=== PATIENT | male | born 1990 | race Caucasian/White ===

== ENCOUNTER 2017-12-17 19:01 | Emergency (ER) | payer BC ==
[~2017-12-17] VITALS: Ht 182.9 cm; Wt 108.9 kg
[2017-12-17 19:20] VITALS: BP 141/83
--- NOTE | 2017-12-17 19:23 | NUR ---
TO BED # 10 AMBULATORY, REPORT GIVEN TO BARBARA CARRERA
[2017-12-17 19:24] VITALS: BP 141/83
--- NOTE | 2017-12-17 19:25 | NUR ---
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 SCLERA IS REDDENED, PERRL, BLURRY VISION AND EYE IS TEARING. PT WASHED EYE OUT AT WORK BUT HAD PAIN WHILE DRIVING HOME. PT IS LAYING IN BED, FACIAL GRIMACING. INSTRUCTED PT TO WASH EYE OUT AGAIN, PT DID NOT TOLERATE, WILL CONTINUE W/ ANY NEW ORDERS.
[2017-12-17] MEDS ORDERED: TETRACAINE HCL/PF 0.5% OPTH 4 ML BTL ONE (19:37)
[2017-12-17] MEDS ORDERED: FLUORESCEIN OPTH STRIP 0.6 MG ONE (19:37)
--- NOTE | 2017-12-17 20:37 | NUR ---
PT JAK, STATES HE CANNOT WAIT ANY LONGER HE HAS TO [employer] HIS DAUGHTER, DOES NOT WANT TO WAIT FOR D/C PAPERWORK.
== END 2017-12-17 20:37 | disposition left against medical advice (07) ==
LOC: MED 19:01
DX: H57.11 Ocular pain, right eye (principal); H53.8 Other visual disturbances
CPT/HCPCS: 99283

== ENCOUNTER 2017-12-18 12:57 | Emergency (ER) | payer BC ==
[~2017-12-18] VITALS: Ht 188 cm; Wt 108.9 kg
[2017-12-18 13:06] VITALS: BP 123/80
[2017-12-18] MEDS ORDERED: ONDANSETRON 4 MG ODT PO ONE (13:30)
[2017-12-18] MEDS ORDERED: MORPHINE SULFATE 4 MG/ML SYR IM ONE (13:30)
[2017-12-18 15:22] VITALS: BP 125/79
== END 2017-12-18 15:22 | disposition home or self-care (01) ==
LOC: MED 12:57
DX: M54.16 Radiculopathy, lumbar region (principal)
CPT/HCPCS: 72131; 96372; 99284; J2270; S0119

== ENCOUNTER 2018-07-05 11:32 | Emergency (ER) | payer BC ==
[~2018-07-05] VITALS: Ht 190.5 cm; Wt 120.2 kg
[2018-07-05 11:40] VITALS: BP 159/118
--- NOTE | 2018-07-05 13:11 | NUR ---
PT AMBULATES TO [facility]
--- NOTE | 2018-07-05 13:16 | NUR ---
PATIENT TO BED #E. PATIENT STATED HIS THROAT FEELS FUNNY/BEEN COUGHING X 1WK. COUGHING OUT PHLEGM. PATIENT STATED FEELS FUNNY WHEN SWALLOWING. PATIENT IN NO DISTRESS. TALKING COMPLETE SENTENCES/NO SOB NOTED
--- NOTE | 2018-07-05 13:28 | NUR ---
BP RECHECKED 130/76
--- NOTE | 2018-07-05 13:32 | NUR ---
PATIENT MOVED TO BED #4 AMBULATED
[2018-07-05 15:08] VITALS: BP 110/61
--- NOTE | 2018-07-05 15:08 | NUR ---
Patient discharged with v/s stable. Written and verbal after care instructions given and explained. Patient alert, oriented and verbalized understanding of instructions. Ambulatory with steady gait. All questions addressed prior to discharge. ID band removed. Patient advised to follow up with PMD. Rx of Azithromycin, Prednisone, Kenalog dental paste given. Patient educated on indication of medication including possible reaction and side effects. Opportunity to ask questions provided and answered.
== END 2018-07-05 15:08 | disposition home or self-care (01) ==
LOC: MED 11:32
DX: R07.0 Pain in throat (principal); R13.10 Dysphagia, unspecified; R22.0 Localized swelling, mass and lump, head
CPT/HCPCS: 99283

== ENCOUNTER 2021-08-26 08:59 | Emergency (ER) | payer BC ==
[~2021-08-26] VITALS: Ht 190.5 cm; Wt 109.3 kg
[2021-08-26 09:03] VITALS: BP 120/78
--- NOTE | 2021-08-26 09:15 | NUR ---
Pt ambulated to bed 12 with steady/even gait
--- NOTE | 2021-08-26 09:25 | NUR ---
31 y/o M BIB self from home c/o intermittent abdominal pain and associated nausea. Pt A&Ox4, ambulatory, states symptoms began at beginning of the year and has not gone away. States abd pain worsening on Saturday. Reports 5/10, sharp/intermittent, non-radiating pain to RLQ and epigastric region. Denies medications prior to arrival. States onset of symptoms worse in the morning. Denies vomiting episodes today. Denies fever, chills, chest pain, urinary symptoms, low back pain, injury. Bed locked in lowest position, side rails x 1. PMH/Sx/Meds: Denies NKDA
--- NOTE | 2021-08-26 09:28 | NUR ---
Dr. Paez is evaluating pt at bedside
[2021-08-26] MEDS ORDERED: FAMOTIDINE 20 MG/2 ML VIAL IVP ONE (09:30)
[2021-08-26] MEDS ORDERED: NACL 0.9% 1,000 ML IV ONE ×2 (09:30→11:35)
--- NOTE | 2021-08-26 09:40 | NUR ---
US tech at bedside
[2021-08-26 09:55] LABS: APPEARANCE,URINE SL CLOUDY (CLEAR); BILIRUBIN,URINE 1+ (NEGATIVE); BLOOD, URINE NEGATIVE (NEGATIVE); COLOR,URINE BROWN (YELLOW); LEUKOCYTE ESTERASE ,URINE NEGATIVE (NEGATIVE); NITRITE, URINE NEGATIVE (NEGATIVE); UGLUCOSE NEGATIVE (NEGATIVE)
[2021-08-26 09:56] LABS: BASOPHILS # (AUTO) 0.1 K/uL (0.00-0.22); BASOPHILS % (AUTO) 0.7 % (0.0-2.0); EOSINOPHILS % (AUTO) 0.2 % (0.0-4.0); HEMATOCRIT 41.4 % (36-52); HEMOGLOBIN 13.8 g/dL (12.0-18.0); LYMPHOCYTES # (AUTO) 2.1 K/uL (2.0-11.5); LYMPHOCYTES % (AUTO) 20.1 % (20.5-51.1); MEAN CORPUSCULAR HEMOGLOBIN 28 pg (27-31); MEAN CORPUSCULAR HGB CONC 33 g/dL (33-37); MEAN CORPUSCULAR VOLUME 83.1 fL (80-94); MONOCYTES # (AUTO) 1.2 K/uL (0.8-1.0); MONOCYTES % (AUTO) 11.7 % (1.7-9.3); NEUTROPHILS # (AUTO) 6.9 K/uL (1.8-7.7); NEUTROPHILS % (AUTO) 67.3 % (42.2-75.2); PLATELET COUNT (AUTO) 385 K/uL (140-450); RED BLOOD CELL COUNT(AUTO) 4.99 MIL/uL (4.20-6.10); RED CELL DISTRIBUTION WIDTH 13.4 % (11.6-13.7); WHITE BLOOD COUNT (AUTO) 10.3 K/uL (4.8-10.8)
[2021-08-26 10:13] LABS: ALBUMIN 4.4 g/dL (3.4-5.0); ANION GAP 18.3 (8-16); CARBON DIOXIDE 23.2 mmol/L (21-32); POTASSIUM 3.5 mmol/L (3.5-5.1); TOTAL BILIRUBIN 0.9 mg/dL (0.0-1.0)
[2021-08-26 10:29] LABS: RBC,URINE 0-5 /HPF (0-5); WBC,URINE 0-5 /HPF (0-5)
--- NOTE | 2021-08-26 11:13 | NUR ---
Patient reports 10/[address] Paez made aware.
[2021-08-26 11:17] LABS: BARBITURATE, URINE NEGATIVE ng/ml (NEG <=200); BENZODIAZEPINE, URINE NEGATIVE ng/mL (NEG <=200); CANNABINOID, URINE POSITIVE ng/mL (NEG <=50); COCAINE, URINE NEGATIVE ng/mL (NEG <=300); OPIATE, URINE NEGATIVE ng/mL (NEG <=2000); PHENCYCLIDINE SCREEN,URINE NEGATIVE ng/mL (NEG <=25)
[2021-08-26] MEDS ORDERED: MORPHINE SULFATE 4 MG/ML SYR IVP ONE (11:35)
[2021-08-26] MEDS ORDERED: ONDANSETRON 4 MG/2 ML VIAL IVP ONE (11:40)
--- NOTE | 2021-08-26 11:56 | NUR ---
Pt transported to CT via [facility].
--- NOTE | 2021-08-26 12:05 | NUR ---
Pt returned from CT via [facility]
--- NOTE | 2021-08-26 12:25 | NUR ---
+ relief to pain; 0/10 at this time. Denies nausea. All pt needs met.
[2021-08-26] MEDS ORDERED: FAMO-90 PO (13:16)
[2021-08-26] MEDS ORDERED: [UNRECOGNIZED DRUG - CODE] PO (13:16)
[2021-08-26] MEDS ORDERED: BEN10 PO (13:16)
[2021-08-26 13:30] VITALS: BP 118/76
--- NOTE | 2021-08-26 13:30 | NUR ---
Dr. Peaz is reevaluating pt at bedside
--- NOTE | 2021-08-26 13:40 | NUR ---
IV removed, catheter intact and site benign. Applied folded 4x4 gauze and tape to stop bleeding.
--- NOTE | 2021-08-26 13:41 | NUR ---
Patient discharged with v/s stable. Written and verbal after care instructions given and explained. Patient alert, oriented and verbalized understanding of instructions. Ambulatory with steady gait. All questions addressed prior to discharge. ID band removed. Patient advised to follow up with PMD. Rx of Bentyl, Bismuth Subalicylate, Pepcid given. Patient educated on indication of medication including possible reaction and side effects. Opportunity to ask questions provided and answered.
[2021-08-27] MEDS ORDERED: ONDA8TAB87 PO (12:06)
[2021-08-27] MEDS ORDERED: ACET-8386 PO (12:06)
== END 2021-08-26 13:41 | disposition home or self-care (01) ==
LOC: MED 08:59
DX: K29.00 Acute gastritis without bleeding (principal); Z79.899 Other long term (current) drug therapy
CPT/HCPCS: 36415; 74176; 76705; 80053; 80305; 81001; 83690; 85025; 87086; 96361; 96374; 96375; 99284; J2270; J2405; J3490; J7030; Q0092

== ENCOUNTER 2021-08-27 10:23 | Emergency (ER) | payer BC ==
[~2021-08-27] VITALS: Ht 188 cm; Wt 108.9 kg
[~2021-08-27 10:23] MED LIST: BEN10 PO; FAMO-90 PO; [UNRECOGNIZED DRUG - CODE] PO
[2021-08-27 10:40] VITALS: BP 128/70
--- NOTE | 2021-08-27 10:49 | NUR ---
31 Y/O MALE BIB SELF C/O OF ABD PAIN SHARP AND STABBING 10/10 BY THE ABDOMEN, RADIATING TO THE BILATERAL LOWER ABDOMEN X6DAYS. STATED THAT HE HAD BRIGHT RED BLOOD WHEN WIPING YESTERDAY. NAUSEA AND VOMITING NOTED TODAY. STATED THAT HE TOOK MEDICATION PRESCIBED TO HIM YESTERDAY FOR PAIN AND N/V WITH MINIMAL EFFECT. STATED APPETITE CHANGES. NKA PMH: DENIES
[2021-08-27] MEDS ORDERED: MORPHINE SULFATE 4 MG/ML SYR IM ONE ×2 (10:55→11:50)
--- NOTE | 2021-08-27 10:56 | NUR ---
DR LANDEROS AT BEDSIDE FOR EVAL
[2021-08-27] MEDS ORDERED: ONDANSETRON 4 MG ODT PO ONE (11:05)
--- NOTE | 2021-08-27 11:34 | NUR ---
PT STATES DECREASE IN NAUSEA, PAIN CONTINUED IN ABDOMEN, DR LANDEROS MADE AWARE
--- NOTE | 2021-08-27 11:41 | NUR ---
CLARIFIED WITH DR LANDEROS REGARDING HOT PACK TO BE GIVEN FOR NON-PHARMACOLOGIC PAIN MANAGEMENT. DR LANDEROS SAID IT WAS OK, HOT PACK APPPLIED TO ABDOMEN, ENSURED NOT DIRECTLY TOUCHING PT SKIN.
--- NOTE | 2021-08-27 11:46 | NUR ---
PT VERBALIZED IMPROVEMENT OF PAIN SENSATION WITH HEAT MANAGEMENT FROM A 01/15 TO 09/15, RESTING IN BED AT THE TIME
--- NOTE | 2021-08-27 11:48 | NUR ---
PT NOW VERBALIZED INCREASE IN PAIN SENSATION, DR LANDEROS AT BEDSIDE FOR FURTHER EVAL
[2021-08-27] MEDS ORDERED: ACET-8386 PO (12:06)
[2021-08-27] MEDS ORDERED: ONDA8TAB87 PO (12:06)
[2021-08-27 12:20] VITALS: BP 121/66
--- NOTE | 2021-08-27 12:21 | NUR ---
Patient discharged with v/s stable. Written and verbal after care instructions ABOUT ABD PAIN given and explained. Patient alert, oriented and verbalized understanding of instructions. Ambulatory with steady gait. All questions addressed prior to discharge. ID band removed. Patient advised to follow up with PMD. Rx of NORCO 5-325, ZOFRAN 8MG given. Patient educated on indication of medication including possible reaction and side effects. Opportunity to ask questions provided and answered.
== END 2021-08-27 12:21 | disposition home or self-care (01) ==
LOC: MED 10:23
DX: R10.13 Epigastric pain (principal); R11.2 Nausea with vomiting, unspecified; K62.5 Hemorrhage of anus and rectum; Z79.899 Other long term (current) drug therapy; Z98.890 Other specified postprocedural states
CPT/HCPCS: 96372; 99284; J2270; Q0162

== ENCOUNTER 2022-05-16 13:37 | Emergency (ER) | payer BC ==
[~2022-05-16] VITALS: Ht 190.5 cm; Wt 104.8 kg
[~2022-05-16 13:37] MED LIST changes: +ACET-8905 PO; +ONDA8TAB87 PO
[2022-05-16 13:51] VITALS: BP 125/74
--- NOTE | 2022-05-16 14:08 | NUR ---
ASSUMED PATIENT CARE, NURSING ASSESSMENT COMPLETED.
--- NOTE | 2022-05-16 14:18 | NUR ---
SEEN AND EVALUATED BY DR HINKLE.
[2022-05-16] MEDS ORDERED: HALOPERIDOL IM 5 MG/ML VIAL IVP ONE (14:30)
[2022-05-16] MEDS ORDERED: DICYCLOMINE HCL LIQUID 20 MG, ALUMINUM HYD/MAG/SIMETHICONE 30 ML, LIDOCAINE VISCOUS 2% ... PO ONE ×3 (14:30)
[2022-05-16] MEDS ORDERED: METOCLOPRAMIDE 10 MG/2 ML INJ VIAL IVP ONE (14:30)
[2022-05-16] MEDS ORDERED: diphenhydrAMINE 50 MG/ML VIAL IVP ONE (14:30)
[2022-05-16] MEDS ORDERED: NACL 0.9% 1,000 ML IV ONE (14:30)
[2022-05-16] MEDS ORDERED: ALUMINUM HYD/MAG/SIMETHICONE 30 ML UDC ONE (14:39)
[2022-05-16] MEDS ORDERED: DICYCLOMINE HCL LIQUID 10 MG/5 ML UDC ONE (14:39)
[2022-05-16 15:02] LABS: BASOPHILS # (AUTO) 0.1 K/uL (0.00-0.22); BASOPHILS % (AUTO) 0.6 % (0.0-2.0); HEMATOCRIT 39.7 % (36-52); HEMOGLOBIN 13.2 g/dL (12.0-18.0); LYMPHOCYTES # (AUTO) 1.3 K/uL (2.0-11.5); LYMPHOCYTES % (AUTO) 12.9 % (20.5-51.1); MEAN CORPUSCULAR HEMOGLOBIN 28 pg (27-31); MEAN CORPUSCULAR HGB CONC 33 g/dL (33-37); MEAN CORPUSCULAR VOLUME 84.2 fL (80-94); MONOCYTES # (AUTO) 0.6 K/uL (0.8-1.0); MONOCYTES % (AUTO) 5.9 % (1.7-9.3); NEUTROPHILS # (AUTO) 8.4 K/uL (1.8-7.7); NEUTROPHILS % (AUTO) 80.6 % (42.2-75.2); PLATELET COUNT (AUTO) 366 K/uL (140-450); RED BLOOD CELL COUNT(AUTO) 4.71 MIL/uL (4.20-6.10); RED CELL DISTRIBUTION WIDTH 13.6 % (11.6-13.7); WHITE BLOOD COUNT (AUTO) 10.4 K/uL (4.8-10.8)
[2022-05-16 15:23] LABS: ALBUMIN 4.7 g/dL (3.4-5.0); ANION GAP 16.2 (8-16); ASPARTATE AMINOTRANSFERASE 11 U/L (15-37); CARBON DIOXIDE 26.3 mmol/L (21-32); CHLORIDE 103 mmol/L (98-107); CREATININE 1.1 mg/dL (0.6-1.3); GFR ARICAN-AMERICAN 99 mL/min (>90); GLUCOSE 107 mg/dL (74-106); LIPASE 91 U/L (73-393); POTASSIUM 3.5 mmol/L (3.5-5.1); SODIUM SERUM 142 mmol/L (136-145); TOTAL BILIRUBIN 0.8 mg/dL (0.0-1.0); UREA NITROGEN, BLOOD 21 mg/dL (7-18)
[2022-05-16] MEDS ORDERED: METO-485 PO (16:09)
[2022-05-16] MEDS ORDERED: FAMO-90 PO (16:09)
[2022-05-16] MEDS ORDERED: DIPH25TA53 PO (16:09)
--- NOTE | 2022-05-16 16:58 | NUR ---
DISPO AND MEDICAL DECISION MAKING, DC HOME WITH E-RX, AND AFTERCARE INSTRUCTIONS. VERBALIZING RELIEF FROM SYMPTOMS, VS WNL. DC HOME AMBULATORY. ALL INSTRUCTIONS UNDESTOOD BY PATIENT WELL.
[2022-05-16 17:01] VITALS: BP 125/65
== END 2022-05-16 17:01 | disposition home or self-care (01) ==
LOC: MED 13:37
DX: R11.2 Nausea with vomiting, unspecified (principal); R10.84 Generalized abdominal pain; R19.7 Diarrhea, unspecified; Z79.899 Other long term (current) drug therapy; Z98.890 Other specified postprocedural states
CPT/HCPCS: 36415; 80053; 83690; 85025; 96361; 96374; 96375; 99284; G0482; J1200; J1630; J2765